=== PATIENT | female | born 1995 | race Two or more races ===

== ENCOUNTER 2021-01-17 09:43 | Inpatient (IN) | payer OTHER ==
[~2021-01-17] VITALS: Ht 149.9 cm; Wt 3.2 kg
[2021-01-17] MEDS ORDERED: PRENATAL CAPLE1 EAC1 PO (11:34)
[2021-01-17] MEDS ORDERED: IRON236 MG PO (11:34)
[2021-01-20] MEDS ORDERED: OXYC1TAB9 PO (09:50)
== END 2021-01-20 14:21 | disposition home or self-care (01) | DRG 788 ==
LOC: LDR 09:43 → O/R 09:43 → LDR 12:23 → O/R 20:33 → OB/GYN 01-18 14:28
PROVIDERS: ADMIT Obstetrics & Gynecology; ATTEND Obstetrics & Gynecology
PROC: 4A1HXFZ Monitoring of Products of Conception, Cardiac Rhythm, External Approach (ICD-10-PCS; 2021-01-17)
PROC: 10D00Z1 Extraction of Products of Conception, Low, Open Approach (ICD-10-PCS; principal; 2021-01-17 17:45)
DX: O34.211 Maternal care for low transverse scar from previous cesarean delivery (principal); O42.02 Full-term premature rupture of membranes, onset of labor within 24 hours of rupture; Z3A.38 38 weeks gestation of pregnancy; Z37.0 Single live birth

== ENCOUNTER 2021-01-24 02:15 | Emergency (ER) | payer OTHER ==
[~2021-01-24] VITALS: Ht 149.9 cm; Wt 90.7 kg
[~2021-01-24 02:15] MED LIST: IRON236 MG PO; OXYC1TAB9 PO; PRENATAL CAPLE1 EAC1 PO
== END 2021-01-24 08:21 ==
LOC: ER 02:15
DX: R42 Dizziness and giddiness (principal)